=== PATIENT | female | born 1960 | race Caucasian/White ===

== ENCOUNTER 2017-09-04 12:56 | Outpatient (CLI) | payer OTHER | END 2017-09-04 12:57 | disposition home or self-care (01) | LOC: BICRAD 12:56 | PROVIDERS: ATTEND Internal Medicine | DX: S69.92XA Unspecified injury of left wrist, hand and finger(s), initial encounter (principal); S52.92XA Unspecified fracture of left forearm, initial encounter for closed fracture ==

== ENCOUNTER 2019-08-22 08:24 | Outpatient (CLI) | payer OTHER ==
--- NOTE | 2019-08-22 09:24 | MMO ---
Bilateral MAMMO Bilat Screen [facility]. CLINICAL HISTORY: Patient is 59 years old and is seen for screening. The patient has no family history of breast cancer. The patient has no personal history of cancer. The patient has a history of bilateral Implants in 2007. VIEWS: The views performed were: bilateral craniocaudal; bilateral craniocaudal with tomosynthesis; bilateral mediolateral oblique; bilateral mediolateral oblique with tomosynthesis; and bilateral Implant displaced with tomosynthesis. This study has been interpreted with the assistance of computer-aided detection. MAMMOGRAM FINDINGS: The breasts are heterogeneously dense, which could obscure a lesion on mammography. Finding 1: There are stable benign appearing calcifications seen in both breasts. Finding 2: Normal implants are present. There are no suspicious masses, suspicious calcifications, or new areas of architectural distortion. IMPRESSION: THERE IS NO MAMMOGRAPHIC EVIDENCE OF MALIGNANCY. A ROUTINE FOLLOW-UP MAMMOGRAM IN 1 YEAR IS RECOMMENDED. THE RESULTS OF THIS EXAM WERE SENT TO THE PATIENT. ACR BI-RADS Category 2 - Benign finding MAMMOGRAPHY NOTE: 1. A negative mammogram report should not delay a biopsy if a dominant of clinically suspicious mass is present. 2. Approximately 10% to 15% of breast cancers are not detected by mammography. 3. Adenosis and dense breasts may obscure an underlying neoplasm. Reported by: BARRETT CHANEY MD Electonically Signed: [id number]
== END 2019-08-22 08:25 | disposition home or self-care (01) ==
LOC: BICMAMMO 08:24
PROVIDERS: ATTEND Family Medicine
DX: Z12.31 Encounter for screening mammogram for malignant neoplasm of breast (principal); Z98.82 Breast implant status
CPT/HCPCS: 77063; 77067

== ENCOUNTER 2021-12-15 09:29 | Outpatient (CLI) | payer BC | END 2021-12-15 09:30 | disposition home or self-care (01) | LOC: BICRAD 09:29 | PROVIDERS: ATTEND Surgery | DX: S93.602A Unspecified sprain of left foot, initial encounter (principal); M20.12 Hallux valgus (acquired), left foot; M19.072 Primary osteoarthritis, left ankle and foot ==

== ENCOUNTER 2024-03-18 14:34 | Outpatient (CLI) | payer MEDICARE ==
[~2024-03-18 14:34] MED LIST: Magnevist 469MG/ML 20 ML VIAL ONE
== END 2024-03-18 14:35 | disposition home or self-care (01) ==
LOC: BICMRI 14:34
PROVIDERS: ATTEND Student in an Organized Health Care Education/Training Program
DX: I67.82 Cerebral ischemia (principal)
CPT/HCPCS: 36415; 70544; 70549; 82565